=== PATIENT | male | born 1955 | race Caucasian/White ===

== ENCOUNTER 2022-03-06 00:11 | Emergency (ER) | payer SELFPAY ==
[~2022-03-06] VITALS: Ht 175.3 cm; Wt 54.4 kg
[2022-03-06 00:13] VITALS: BP 134/90
--- NOTE | 2022-03-06 00:14 | NUR ---
biba taken to bed #3
--- NOTE | 2022-03-06 00:17 | NUR ---
66 YO M BIBA [facility] [place] WITH C/C OF N/V X3DAYS. REPORTS 8/ MIDABD PAIN NONRAD. DENIES DIARRHEA. STATES EMESIS WAS BLOOD TINGED. DENIES TAKING ANYTHING FOR PAIN AND NAUSEA. PER EMS PT WAS AT [facility] AND LEFT AMA. EMS GAVE 4MG ZOFRAN SUBLINGUAL. DENIES HX RX:CLONOPIN ALLERGY:LEVAQUIN, LIPITOR AND PCNS
--- NOTE | 2022-03-06 00:24 | NUR ---
PT FOUND SMOKING A CIGARETTE IN THE RESTROOM. MARTA AT BEDSIDE EXPLAINED TO PT HE IS NOT ALLOWED TO BE SMOKING IN THE HOSPITAL. PT TOLD MARTA "OK IM SORRY". DURING ASSESSMENT PT STATED HE LEFT EASTSOUND BECAUSE NOTHING WAS BEING DONE FOR HIM.
[2022-03-06] MEDS ORDERED: ONDANSETRON 4 MG TAB ONE (00:29)
[2022-03-06] MEDS ORDERED: PANTOPRAZOLE 40 MG TABEC PO ONE ×3 (00:29→00:30)
[2022-03-06] MEDS ORDERED: ONDANSETRON 4 MG ODT PO ONE (00:30)
[2022-03-06] MEDS ORDERED: ONDA-188 SL (00:31)
[2022-03-06] MEDS ORDERED: PANT40EC PO (00:31)
--- NOTE | 2022-03-06 00:33 | NUR ---
PT MEDICATED PER ORDERS. DURING MED PASS PT ASKED "CAN I HAVE SOME CLONOPIN" "CAN YOU ASK THE DOCTOR". MARTA STATED NO.
[2022-03-06 00:41] VITALS: BP 134/90
--- NOTE | 2022-03-06 00:41 | NUR ---
Patient discharged with v/s stable. Written and verbal after care instructions given and explained. Patient alert, oriented and verbalized understanding of instructions. Ambulatory with steady gait. All questions addressed prior to discharge. ID band removed. Patient advised to follow up with PMD. Rx of ZOFRAN AND PROTONIX given. Patient educated on indication of medication including possible reaction and side effects. Opportunity to ask questions provided and answered.
--- NOTE | 2022-03-06 08:35 | NUR ---
RECEIVED CALL FROM ER ADMITTING THAT PT WAS DISCHARGED EARLIER THIS MORNING AND WAS AWAITING RIDE. PT REQUESTING TRANSPORTATION. OFFERED [facility], PT REFUSED AND WALKED OUT OF ER.
== END 2022-03-06 00:41 | disposition home or self-care (01) ==
LOC: MED 00:11
DX: R11.2 Nausea with vomiting, unspecified (principal); K92.0 Hematemesis; Z79.899 Other long term (current) drug therapy; Z88.0 Allergy status to penicillin; Z88.1 Allergy status to other antibiotic agents; Z88.8 Allergy status to other drugs, medicaments and biological substances
CPT/HCPCS: 99283; Q0162

== ENCOUNTER 2023-01-29 21:36 | Emergency (ER) | payer SELFPAY ==
[~2023-01-29] VITALS: Ht 175.3 cm; Wt 63.5 kg
[~2023-01-29 21:36] MED LIST: ONDA-188 SL; PANT40EC PO
[2023-01-29 21:41] VITALS: BP 163/112; PULSE 105; RESP 16; TEMP 97.4; O2SAT 97
--- NOTE | 2023-01-29 21:43 | NUR ---
PT BIBA TO BED 5
--- NOTE | 2023-01-29 21:47 | NUR ---
Patient being evaluated by physician at bedside.
[2023-01-29] MEDS ORDERED: ACETAMINOPHEN EXTRA STRENGTH 500 MG TAB PO ONE (21:55)
[2023-01-29] MEDS ORDERED: clonazePAM 0.5 MG TAB PO ONE (21:55)
[2023-01-29] MEDS ORDERED: ONDANSETRON 4 MG ODT PO ONE (23:05)
[2023-01-29 23:31] VITALS: BP 163/112; PULSE 105; RESP 16; TEMP 97.4; O2SAT 97
--- NOTE | 2023-01-29 23:31 | NUR ---
Patient discharged with v/s stable. Written and verbal after care instructions given and explained. Patient verbalized understanding. Ambulatory with steady gait. All questions addressed prior to discharge. Advised to follow up with PMD.
== END 2023-01-29 23:21 | disposition home or self-care (01) ==
LOC: MED 21:36
DX: F41.9 Anxiety disorder, unspecified (principal); R45.7 State of emotional shock and stress, unspecified; I10 Essential (primary) hypertension; J44.9 Chronic obstructive pulmonary disease, unspecified; F17.210 Nicotine dependence, cigarettes, uncomplicated; Z71.6 Tobacco abuse counseling; Z79.899 Other long term (current) drug therapy; Z88.0 Allergy status to penicillin; Z88.8 Allergy status to other drugs, medicaments and biological substances; Z88.1 Allergy status to other antibiotic agents
CPT/HCPCS: 99284; Q0162